=== PATIENT | female | born 1950 | race Caucasian/White ===

== ENCOUNTER 2020-08-16 16:58 | Observation (INO) ==
[2020-08-16 17:28] LABS: Basophils # 0.1 10*3/uL (0.0-0.2); Basophils % 0.7 % (0.0-0.8); Eosinophils # 0.3 10*3/uL (0.0-0.87); Eosinophils % 3.6 % (0.00-10.9); Hemoglobin 11.5 GM/DL (12.0-16.0); Immature Granulocytes % 0.4 %; Immature Granulocytes Absolute 0.03 #; Lymphocytes # 1.5 10*3/uL (1.4-4.0); Lymphocytes % 21.8 % (21.3-54.2); Mean Corpuscular HGB Conc 32.9 GM/DL (32-36); Mean Corpuscular Volume 97.2 FL (87-102); Mean Platelet Volume 10.3 FL (9.6-12.0); Monocytes % 8.9 % (1.7-12.7); Neutrophils % 64.6 % (38.7-73.9); Platelet Count 174 T/CUMM (130-400); Red Cell Distribution Width 13.2 % (9.3-17.3); White Blood Count 6.9 T/CUMM (4-12)
[2020-08-16 17:40] LABS: INR 0.9; PT Patient Result 10.5 SECS (10.5-12.0); Partial Thromboplastin Time 24.8 SECS (23.9-33.8)
[2020-08-16 17:47] LABS: INR 0.9; PT Patient Result 10.5 SECS (10.5-12.0)
[2020-08-16 17:58] LABS: Alanine Aminotransferase 18 U/L (13-56); Albumin 3.3 G/DL (3.4-5.0); Alkaline Phosphatase 73 U/L (45-117); Aspartate Amino Transferase 12 U/L (0-37); Bilirubin,Total < 0.39 MG/DL (0.2-1.0); Blood Urea Nitrogen 41 MG/DL (7-18); Calcium 8.1 MG/DL (8.5-10.1); Carbon Dioxide 25 MMOL/L (21-32); Estimated Glom Filtration Rate 20 ML/MIN; Glucose 97 MG/DL (74-106); Osmolality,Calculated 299.6 MOS/KG (273-304); Potassium 3.8 MMOL/L (3.5-5.1); Sodium 146 MMOL/L (136-145); Total Protein 6.3 G/DL (6.4-8.2)
[2020-08-16] MEDS ORDERED: NITROGLYCERIN SL 0.4 MG TABLET SL STA (18:49)
[2020-08-16] MEDS ORDERED: NITROGLYCERIN SL 0.4 MG TABLET SL ONE (18:51)
[2020-08-16] MEDS ORDERED: ONDANSETRON 4 MG/2 ML VIAL IV PRN (19:22)
[2020-08-16] MEDS ORDERED: GLUCAGON 1 MG VIAL IM PRN ×2 (19:22)
[2020-08-16] MEDS ORDERED: DEXTROSE 50% 25 GM/50 ML VIAL IV PRN ×2 (19:22)
[2020-08-16] MEDS ORDERED: ENOXAPARIN 40 MG/0.4 ML SYRINGE SUBCUT SCH (19:30)
[2020-08-16] MEDS ORDERED: ATORVASTATIN 40 MG TABLET PO SCH (21:00)
[2020-08-16] MEDS ORDERED: SERTRALINE 100 MG TABLET PO SCH (21:00)
[2020-08-16] MEDS: INSULIN LISPRO 100 UNIT/ML SUBCUT SCH (23:06)
[2020-08-16] MEDS: GABAPENTIN 300 MG CAPSULE PO SCH (23:07)
[2020-08-16] MEDS: PANTOPRAZOLE 40 MG VIAL IV SCH (23:07)
[2020-08-16] MEDS: TOPIRAMATE 200 MG TABLET PO SCH (23:07)
[2020-08-17 04:57] LABS: Basophils % 0.6 % (0.0-0.8); Eosinophils # 0.2 10*3/uL (0.0-0.87); Eosinophils % 3.2 % (0.00-10.9); Hematocrit 33.8 VOL% (35.7-47.0); Immature Granulocytes % 0.3 %; Immature Granulocytes Absolute 0.02 #; Lymphocytes # 2.2 10*3/uL (1.4-4.0); Lymphocytes % 33.7 % (21.3-54.2); Mean Corpuscular HGB Conc 32.5 GM/DL (32-36); Mean Corpuscular Volume 99.1 FL (87-102); Mean Platelet Volume 10.5 FL (9.6-12.0); Monocytes % 6.6 % (1.7-12.7); Neutrophils % 55.6 % (38.7-73.9); Platelet Count 173 T/CUMM (130-400); Red Blood Count 3.41 MC/CUMM (3.8-5.5); Red Cell Distribution Width 13.2 % (9.3-17.3); White Blood Count 6.7 T/CUMM (4-12)
[2020-08-17 05:13] LABS: Calcium 8.4 MG/DL (8.5-10.1); Osmolality,Calculated 299.6 MOS/KG (273-304); Potassium 3.5 MMOL/L (3.5-5.1); Risk Ratio 4.33; Thyroid Stimulating Hormone 2.02 uIU/ml (0.358-3.74); VLDL CHOLESTEROL 30.2 MG/DL
[2020-08-17] MEDS ORDERED: PANTOPRAZOLE 40 MG TABLET PO SCH (09:00)
[2020-08-17] MEDS ORDERED: ASPIRIN CHEW 81 MG TABLET PO SCH (09:00)
[2020-08-17] MEDS ORDERED: amLODIPine 10 MG TABLET PO SCH (09:00)
[2020-08-17] MEDS ORDERED: TOLTERODINE LA 4 MG CAPSULE PO SCH (09:00)
[2020-08-17] MEDS: GABAPENTIN 300 MG CAPSULE PO SCH (10:46)
[2020-08-17] MEDS: PANTOPRAZOLE 40 MG VIAL IV SCH (10:46)
[2020-08-17] MEDS: TOPIRAMATE 200 MG TABLET PO SCH (10:46)
[2020-08-17] MEDS: INSULIN LISPRO 100 UNIT/ML SUBCUT SCH ×2 (10:56→12:20)
[2020-08-17] MEDS ORDERED: POTASSIUM CHLORIDE 20 MEQ TABLET PO ONE (11:28)
[2020-08-17] MEDS ORDERED: POTASSIUM CHLORIDE 20 MEQ TABLET PO SCH (11:30)
[2020-08-17 12:36] VITALS: BP 139/69
[2020-08-17] MEDS ORDERED: ENOXAPARIN 30 MG/0.3 ML SYRINGE SUBCUT SCH (23:00)
== END 2020-08-17 14:28 | disposition home or self-care (01) ==
LOC: EDUNIT# → EDBD → N.EDINP 16:58 → N.ED 16:58 → N.EDINP 22:27 → N.TELEN 22:45
PROVIDERS: ADMIT Internal Medicine; ATTEND Internal Medicine